=== PATIENT | male | born 1960 | race American Indian/Alaskan Native ===

== ENCOUNTER 2022-03-26 16:00 | Emergency (ER) | payer OTHER ==
--- NOTE | 2022-03-26 17:57 | XRay Report ---
CHEST 2 VIEWS INDICATION / CLINICAL INFORMATION: cough. COMPARISON: None available. FINDINGS: SUPPORT DEVICES: None. HEART / MEDIASTINUM: Mild cardiomegaly. LUNGS / PLEURA: Central bronchovascular prominence, which may represent sequela of bronchitis or cent ral pulmonary venous congestion. Clinical correlation is needed. No kendra pulmonary edema or evidence for pneumonia. No pneumothorax. ADDITIONAL FINDINGS: None IMPRESSION: 1. Central bronchovascular prominence, which may represent sequela of bronchitis or central pulmonary venous congestion. Clinical correlation is needed. No kendra pulmonary edema or evidence for pneumoni a. Signer Name: Favio Mcadams MD Signed: 03/26/2022 5:53 PM Workstation Name: [id number]
[2022-03-27] MEDS ORDERED: ALBUTEROL 2.5 MG/3 ML NEBU IH ONE (03:05)
--- NOTE | 2022-03-27 03:55 | Emergency Department Report ---
ED General Adult HPI - General Chief complaint: Upper Respiratory Infection Stated complaint: SHORT OF BREATH Time Seen by Provider: 03/27/22 02:32 Source: patient Mode of arrival: Ambulatory Limitations: No Limitations - History of Present Illness Initial comments: 62-year-old male with no significant past medical history reports to the ER with complaints of cough cold congestion for 1 week. Patient denies any shortness of breath or chest pain. Patient reports taking [id number] medications with no relief. Patient reports his cough is productive with greenish slight mucus. Patient reports no other acute signs or symptoms at this time. - Related Data Previous Rx's Medication Instructions Recorded Last Taken Type Albuterol Mdi (or & Nicu Only) 1 puff IH Q4HR PRN 30 Days #1 inh 03/27/22 Unknown Rx [ProAir HFA Inhaler] predniSONE [Deltasone] 20 mg PO QDAY 5 Days #5 tab 03/27/22 Unknown Rx Allergies Allergy/AdvReac Type Severity Reaction Status Date / Time No Known Allergies Allergy Verified 03/26/22 16:11 ED Review of Systems ROS: Stated complaint: SHORT OF BREATH Other details as noted in HPI Comment: All other systems reviewed and negative ENT: congestion Respiratory: cough. denies: shortness of breath Cardiovascular: denies: chest pain ED Past Medical Hx - Past Medical History Previous Medical History?: No - Medications Home Medications: Home Medications Medication Instructions Recorded Confirmed Last Taken Type Albuterol Mdi (or & Nicu Only) 1 puff IH Q4HR PRN 30 Days #1 inh 03/27/22 Unknown Rx [ProAir HFA Inhaler] predniSONE [Deltasone] 20 mg PO QDAY 5 Days #5 tab 03/27/22 Unknown Rx ED Physical Exam - General Limitations: No Limitations General appearance: alert, in no apparent distress - Head Head exam: Present: atraumatic, normocephalic - Eye Eye exam: Present: normal appearance - ENT ENT exam: Present: mucous membranes moist, other (Nasal congestion present) - Neck Neck exam: Present: normal inspection - Respiratory Respiratory exam: Present: normal lung sounds bilaterally, wheezes. Absent: respiratory distress, rales, rhonchi, stridor - Cardiovascular Cardiovascular Exam: Present: regular rate, normal rhythm. Absent: systolic murmur, diastolic murmur, rubs, gallop - GI/Abdominal GI/Abdominal exam: Present: soft, normal bowel sounds - Rectal Rectal exam: Present: deferred - Extremities Exam Extremities exam: Present: normal inspection - Back Exam Back exam: Present: normal inspection - Neurological Exam Neurological exam: Present: alert, oriented X3 - Psychiatric Psychiatric exam: Present: normal affect, normal mood - Skin Skin exam: Present: warm, dry, intact, normal color. Absent: rash ED Course Vital Signs 03/26/22 03/27/22 03/27/22 16:09 02:18 04:27 Temperature 98.2 F 97.6 F Pulse Rate 64 81 77 Respiratory 20 14 14 Rate Blood Pressure 154/94 230/106 222/108 [Right] O2 Sat by Pulse 97 94 99 Oximetry ED Medical Decision Making - Radiology Data [facility] [address] [place] [address] XRay Report Signed Patient: MATT KO MR#: [id number] : 1960 Acct:[id number] Age/Sex: 62 / M ADM Date: 03/26/22 Loc: ED Attending Dr: Ordering Physician: ALICIA WEI MD Date of Service: 03/26/22 Procedure(s): XR chest routine 2V Accession Number(s): [id number] cc: ED MD SANJUANA Fluoro Time In Minutes: CHEST 2 VIEWS INDICATION / CLINICAL INFORMATION: cough. COMPARISON: None available. FINDINGS: SUPPORT DEVICES: None. HEART / MEDIASTINUM: Mild cardiomegaly. LUNGS / PLEURA: Central bronchovascular prominence, which may represent sequela of bronchitis or central pulmonary venous congestion. Clinical correlation is needed. No kendra pulmonary edema or evidence for pneumonia. No pneumothorax. ADDITIONAL FINDINGS: None IMPRESSION: 1. Central bronchovascular prominence, which may represent sequela of bronchitis or central pulmonary venous congestion. Clinical correlation is needed. No kendra pulmonary edema or evidence for pneumonia. Signer Name: Marquita Mcadams MD Signed: 03/26/2022 5:53 PM Workstation Name: [id number] Transcribed By: RH Dictated By: MARQUITA MCADAMS MD Electronically Authenticated By: MARQUITA MCADAMS MD Signed Date/Time: 03/26/221752 DD/ 51 TD/TT: - Medical Decision Making 62-year-old male 1 week congestion and cough. No no other acute symptoms reported. Physical exam patient has wheezing bilaterally. Nasal congestion. Nonlabored breathing. Chest x-ray IMPRESSION: 1. Central bronchovascular prominence, which may represent sequela of bronchitis or central pulmonary venous congestion. Clinical correlation is needed. No kendra pulmonary edema or evidence for pneumonia. Patient received breathing treatment here in the ER. After breathing treatment patient has a decrease in wheezing in bilateral lung status. Patient reports feeling better. Patient is stable for discharge home. Patient report has not taken his blood pressure for tonight. Patient is asymptomatic with elevated blood pressure. Patient is not take his blood pressure soon as he gets home. Vital Signs 03/26/22 03/27/22 03/27/22 16:09 02:18 04:27 Temperature 98.2 F 97.6 F Pulse Rate 64 81 77 Respiratory 20 14 14 Rate Blood Pressure 154/94 230/106 222/108 [Right] O2 Sat by Pulse 97 94 99 Oximetry Critical care attestation.: If time is entered above; I have spent that time in minutes in the direct care of this critically ill patient, excluding procedure time. ED Disposition Clinical Impression: Acute bronchitis Qualifiers: Bronchitis organism: unspecified organism Qualified Code(s): J20.9 - Acute bronchitis, unspecified Disposition: 01 HOME / SELF CARE / HOMELESS Is pt being admited?: No Condition: Stable Instructions: Acute Bronchitis, Adult, Acute Bronchitis (ED) Prescriptions: predniSONE [Deltasone] 20 mg PO QDAY 5 Days #5 tab Albuterol Mdi (or & Nicu Only) [ProAir HFA Inhaler] 1 puff IH Q4HR PRN 30 Days #1 inh PRN Reason: wheezing Referrals: MEGHAN PROCTOR MD [Primary Care Provider] - 3-5 Days Forms: Work/School Release Form(ED)
[2022-03-27 04:37] VITALS: BP 222/108
== END 2022-03-27 04:28 | disposition home or self-care (01) ==
LOC: ED 16:00
DX: J20.9 Acute bronchitis, unspecified (principal)
CPT/HCPCS: 71046; 94640; 99282; 99283